=== PATIENT | male | born 1985 | race Caucasian/White ===

== ENCOUNTER 2022-01-27 21:10 | Emergency (ER) | payer BC ==
[2022-01-27 21:32] VITALS: BP 125/96; PULSE 100; TEMP 99; BMI 31.5
[2022-01-27 22:34] LABS: HEMOGLOBIN 15.8 G/dL (11.7-16.9); MCH 29.6 pg (25.7-33.7); MCHC 35.2 g/dl (32.0-35.9); MEAN PLT VOLUME 7.7 fl (7.5-11.1); PLATELET COUNT 197.6 10^3/uL (134-434); RBC 5.36 10^6/uL (4.00-5.60); RDW 14.7 % (11.9-15.9); WHITE BLOOD COUNT 6.8 10^3/uL (4.0-10.8)
[2022-01-27 22:55] LABS: PLATELET ESTIMATE ADEQUATE
[2022-01-27 23:00] LABS: ALBUMIN 4.4 g/dl (3.4-5.0); BILIRUBIN,TOTAL 0.6 mg/dl (0.2-1); CALCIUM 9.2 mg/dl (8.5-10); CREATININE 0.8 mg/dl (0.55-1.3); TOT PROT 7.3 g/dl (6.4-8.2)
== END 2022-01-28 00:20 | disposition home or self-care (01) ==
LOC: FER 21:10
DX: R07.89 Other chest pain (principal); M25.512 Pain in left shoulder
CPT/HCPCS: 36415; 80053; 84484; 85027; 93005; 99284-25

== ENCOUNTER 2023-07-30 15:27 | Emergency (ER) | payer OTHER, BC ==
[2023-07-30 15:57] VITALS: BP 131/91; PULSE 91; RESP 17; TEMP 99; BMI 32.3
[2023-07-30] MEDS ORDERED: IBUPROFEN 400 MG TABLET (FP) PO ONE ×2 (17:54→18:17)
== END 2023-07-30 18:42 | disposition home or self-care (01) ==
LOC: FER 15:27
DX: M25.561 Pain in right knee (principal); W17.2XXA Fall into hole, initial encounter; X50.1XXA Overexertion from prolonged static or awkward postures, initial encounter; Y99.0 Civilian activity done for income or pay
CPT/HCPCS: 73562-TC-RT-FY; 99283-25